=== PATIENT | female | born 1975 | race Caucasian/White ===

== ENCOUNTER 2020-04-11 12:29 | Outpatient (CLI) | payer OTHER, SELFPAY ==
--- NOTE | ~2020-04-11 | XR_ITS ---
EXAMINATION: XR lg joint inject/asp w image DATE: 04/11/2020 13:13 INDICATION: Unilateral primary osteoarthritis, right hip. TECHNIQUE: A time-out was performed to verify the patient's name, date of , and procedure to b e performed. The procedure including the risks, benefits, and alternatives was discussed with the pat ient. Risks discussed included bleeding and infection. The patient understood the risks and agreed to proceed. The skin overlying the right hip joint was prepped and draped in usual sterile fashion. A nesthetic was administered with 1% lidocaine subcutaneously. A 22 G needle was advanced under fluoro scopic guidance into the joint. Injection of 1 mL of Omnipaque 240 confirmed intra-articular positio n of the needle. Subsequently, injectate consisting of 5 mL 1% lidocaine and 2 mL 10 mg/mL Kenalog w as instilled. The needle was removed and the entry site was cleaned and dressed. There were no imme diate complications. Fluoroscopy exposure time was 0.1 minutes. The total number of images was 2. FINDINGS: Real-time fluoroscopy demonstrates the needle in the right hip joint. Patient's pain prior to procedure:4/10. Patient's pain following the procedure: 2/10. IMPRESSION: 1. Right hip joint injection of local anesthetic and steroid with decrease in the patient's presentin g pain. Reviewed, dictated and finalized at location A. IMPRESSION: 1. Right hip joint injection of local anesthetic and steroid with decrease in t he patient's presenting pain.
== END 2020-04-11 12:30 | disposition home or self-care (01) ==
PROVIDERS: PCP Nurse Practitioner Adult Health; Visit Provider Orthopaedic Surgery
DX: M16.11 Unilateral primary osteoarthritis, right hip (principal)
CPT/HCPCS: 20610; 77002; J3301; Q9966

== ENCOUNTER 2020-04-18 09:15 | Outpatient (CLI) | payer OTHER, SELFPAY ==
--- NOTE | ~2020-04-18 | MM_ITS ---
EXAMINATION: MM screening placido BI w juan carlos HISTORY: Screening mammogram TECHNIQUE: Craniocaudal and mediolateral oblique 3-D tomosynthesis images were obtained and synthetic 2-D images were generated. CAD analysis was submitted and interpreted. COMPARISON: 04/06/2019, 05/31/2017, 06/29/2014 bilateral digital screening mammogram examinations BREAST PARENCHYMAL COMPOSITION: There are scattered areas of fibroglandular density. FINDINGS: There is no evidence of suspicious mass, calcification, or architectural distortion to sugg est malignancy in either breast. There has been no suspicious interval change. IMPRESSION: 1. No mammographic evidence of malignancy. 2. Recommend routine screening mammography in one year. BI-RADS Category 1: Negative Reviewed, dictated and finalized at location A.
== END 2020-04-18 09:16 | disposition home or self-care (01) ==
LOC: ANHIMG 09:17
PROVIDERS: PCP Nurse Practitioner Adult Health; Visit Provider Nurse Practitioner Adult Health
DX: Z12.31 Encounter for screening mammogram for malignant neoplasm of breast (principal)
CPT/HCPCS: 77063; 77067

== ENCOUNTER 2020-04-26 11:00 | Outpatient (RCR) | payer OTHER, SELFPAY ==
--- NOTE | 2020-04-18 13:42 | PTOPEVAL ---
Thank you for referring Nubia Saul to [facility]. Please review, sign, date and return this plan of care RAÚL. Mrs. Saul was seen to day for PT evaluation of L shoulder pain. Pt to be seen 2x wk for 4 weeks. I agree with and certify that the following plan of care is medically necessary. Referring Physician Date Admitting Provider: Attending Provider: Keith Bates MD Referring Provider: *PT Outpatient Evaluation Start: 04/18/20 12:28 Freq: Status: Active Protocol: Document 04/18/20 12:28 [facility] (Rec: 04/18/20 13:24 [facility] [id number]) Therapy Assessment Status Assessment Status Assessment Status Evaluation Outpatient Past Medical History Past Medical History No Past Medical/Surgical History Patient/Family Denies Significant Past Medical/ Surgical History Source of Past Medical History Patient Evaluation Information Problem Diagnosis L shoulder pain Additional Evaluation Detail Bad fall 5 years ago. Since then she's been having neck issues that has now progressed to L shoulder pain. Pain shoots back from acromion to between shoulder blades. States she's started having occasional pain down into L arm, however, normally stays at her L shoulder and between shoulder blades. Occasional numbness into L hand and has noticed weakness. Cut the grass a few days ago and had onset of shaking at L shoulder , noticable weakness, and increased pain from gripping the push mower. Subjective Information Pt reports difficulty gripping Query Text:As Reported By Patient/ , carrying, and bathing with L Family arm. Pt has difficulty reaching her head to style her hair. Daily household and recreational activities are limited. States her shoulder fatigues quickly with prolonged activity. Pain Assessment Timing of Pain Assessment Timing of Pain Assessment Assessment Pain Scale Pain Scale Used Numeric (1 - 10) Self Report Pain Assessment Left Shoulder(s) Reported Pain Level 5 Pain Description Sharp Radicular Pain Location L scapula Pain Frequency
--- NOTE | 2020-04-18 16:15 | PTOPEVAL ---
Thank you for referring Nubia Saul to [facility] [place][Note 2]. Please review, sign, date and return this plan of care RAÚL. Mrs. Saul was seen today for PT evaluation. Pt to be seen 2x week for 3 weeks for L shoulder pain. I agree with and certify that the following plan of care is medically necessary. Referring Physician Date Admitting Provider: Attending Provider: Keith Bates MD Referring Provider: *PT Outpatient Evaluation Start: 04/18/20 12:28 Freq: Status: Active Protocol: Document 04/18/20 12:28 [facility] (Rec: 04/18/20 13:24 [facility] [id number]) Therapy Assessment Status Assessment Status Assessment Status Evaluation Outpatient Past Medical History Past Medical History No Past Medical/Surgical History Patient/Family Denies Significant Past Medical/ Surgical History Source of Past Medical History Patient Evaluation Information Problem Diagnosis L shoulder pain Additional Evaluation Detail Bad fall 5 years ago. Since then she's been having neck issues that has now progressed to L shoulder pain. Pain shoots back from acromion to between shoulder blades. States she's started having occasional pain down into L arm, however, normally stays at her L shoulder and between shoulder blades. Occasional numbness into L hand and has noticed weakness. Cut the grass a few days ago and had onset of shaking at L shoulder , noticable weakness, and increased pain from gripping the push mower. Subjective Information Pt reports difficulty gripping Query Text:As Reported By Patient/ , carrying, and bathing with L Family arm. Pt has difficulty reaching her head to style her hair. Daily household and recreational activities are limited. States her shoulder fatigues quickly with prolonged activity. Pain Assessment Timing of Pain Assessment Timing of Pain Assessment Assessment Pain Scale Pain Scale Used Numeric (1 - 10) Self Report Pain Assessment Left Shoulder(s) Reported Pain Level 5 Pain Description Sharp Radicular Pain Location L scapula Pain Frequency
--- NOTE | 2020-04-23 10:31 | PCPTNOTE ---
pt called and canceled due to not able to get away from work;
--- NOTE | 2020-05-29 13:52 | PCPTNOTE ---
PHYSICAL THERAPY DISCHARGE 05-29-2020 Attending Provider: Keith Bates MD Patient:Nubia Saul Date of :1975 Ms. Saul has received 2 PT sessions on April 18 and April 26 for the diagnosis of L shoulder pain. She then stopped attending PT, therefore she will be discharged at this time. The goals were not addressed. Thank you for referring Nubia to [facility]. Please review, sign, date and return this discharge summary RAÚL. I have been updated about the patient's current status and I agree with discharge from the above service at this time. Referring Physician Date
== END 2020-05-29 15:16 | disposition home or self-care (01) ==
LOC: ANHPT 11:00
PROVIDERS: PCP Nurse Practitioner Adult Health; Visit Provider Orthopaedic Surgery
DX: M25.512 Pain in left shoulder (principal)
CPT/HCPCS: 97110; 97140; 97161

== ENCOUNTER 2021-04-22 08:46 | Outpatient (CLI) | payer OTHER, SELFPAY ==
--- NOTE | ~2021-04-22 | MM_ITS ---
EXAMINATION: MM screening placido BI w juan carlos HISTORY: Screening TECHNIQUE: Craniocaudal and mediolateral oblique 3-D tomosynthesis images were obtained and synthetic 2-D images were generated. CAD analysis was submitted and interpreted. COMPARISON: Comparison to multiple prior studies sequentially, with oldest reviewed study dated 06/20. BREAST PARENCHYMAL COMPOSITION: There are scattered areas of fibroglandular density. FINDINGS: There is a cluster of calcifications in the mid lateral aspect of the right breast on CC vi ew. These calcifications are not definitely identified on MLO view. The left breast is stable without evidence for malignancy. IMPRESSION: 1. Cluster of indeterminate calcifications mid lateral aspect of the right breast on CC view. 2. Magnification views recommended. BI-RADS Category 0: Incomplete: Needs additional imaging evaluation. Reviewed, dictated and finalized at location A. IMPRESSION: 1. Cluster of indeterminate calcifications mid lateral aspect of the right darlene st on CC view. 2. Magnification views recommended. BI-RADS Category 0: Incomplete: Needs additional imaging evaluation.
== END 2021-04-22 08:47 | disposition home or self-care (01) ==
LOC: ANHIMG 08:48
PROVIDERS: PCP Nurse Practitioner Adult Health; Visit Provider Nurse Practitioner Adult Health
DX: Z12.31 Encounter for screening mammogram for malignant neoplasm of breast (principal); R92.8 Other abnormal and inconclusive findings on diagnostic imaging of breast
CPT/HCPCS: 77063; 77067

== ENCOUNTER 2021-05-16 13:34 | Outpatient (CLI) | payer OTHER, SELFPAY ==
--- NOTE | ~2021-05-16 | MM_ITS ---
EXAMINATION: MM diagnostic mammo unilat RT HISTORY: Right breast calcifications on screening mammogram TECHNIQUE: Magnification views of the right breast were performed. CAD analysis was submitted and int erpreted. COMPARISON: 04/22/2021, 04/18/2020, 04/06/2019 FINDINGS: There is a faint group of calcifications in the posterior third of the upper outer quadrant breast at the 10:00 location 8 cm from the nipple. The calcifications appear to be round in morpholo gy but are too faint and too few in number to characterize. No associated mass or architectural disto rtion is identified. IMPRESSION: 1. Probably benign right breast calcifications. 2. Recommend 6 month follow-up right diagnostic mammogram. BI-RADS category 3, probably benign findings. Reviewed, dictated and finalized at location A.
== END 2021-05-16 13:35 | disposition home or self-care (01) ==
LOC: ANHIMG 13:37
PROVIDERS: PCP Nurse Practitioner Adult Health; Visit Provider Nurse Practitioner Adult Health
DX: R92.8 Other abnormal and inconclusive findings on diagnostic imaging of breast (principal)
CPT/HCPCS: 77065

== ENCOUNTER 2022-11-17 15:09 | Outpatient (CLI) | payer OTHER, SELFPAY ==
--- NOTE | ~2022-11-17 | MM_ITS ---
EXAMINATION: MM screening placido BI w juan carlos HISTORY: Screening mammogram TECHNIQUE: Craniocaudal and mediolateral oblique 3-D tomosynthesis images were obtained and synthetic 2-D images were generated. CAD analysis was submitted and interpreted. COMPARISON: 05/16/2021 diagnostic right mammogram 04/22/2021, 04/18/2020, 04/06/2019 bilateral screening mammogram examinations BREAST PARENCHYMAL COMPOSITION: There are scattered areas of fibroglandular density. FINDINGS: Microcalcifications in the upper right breast best demonstrated on MLO view. Diagnostic rig ht mammogram with magnification views is recommended, with ultrasound if required Otherwise there is no evidence of suspicious mass, calcification, or architectural distortion to sugg est malignancy in either breast. There has been no other suspicious interval change. IMPRESSION: 1. Right breast microcalcifications 2. Diagnostic right mammogram with magnification views is recommended, with ultrasound if required BI-RADS Category 0: Incomplete: Needs additional imaging evaluation. Reviewed, dictated and finalized at location A. CTOR PHYSICAL THERAPY IMPRESSION: 1. Right breast microcalcifications 2. Diagnostic right mammogram with magnification views is recommended, with ult rasound if required BI-RADS Category 0: Incomplete: Needs additional imaging evaluation.
== END 2022-11-17 15:10 | disposition home or self-care (01) ==
PROVIDERS: PCP Family Medicine; Visit Provider Family Medicine
DX: Z12.31 Encounter for screening mammogram for malignant neoplasm of breast (principal); R92.8 Other abnormal and inconclusive findings on diagnostic imaging of breast
CPT/HCPCS: 77063; 77067

== ENCOUNTER → 2022-11-23 13:31 | Outpatient (CLI) | payer OTHER, SELFPAY ==
--- NOTE | ~2022-11-23 | MR_ITS ---
EXAMINATION: MR abdomen wo/w con DATE: 11/23/2022 14:24 INDICATION: Right upper quadrant abdominal pain and cavernous hemangioma the liver TECHNIQUE: Magnetic resonance imaging (MRI) of the abdomen was performed without and with 15 mL Multi dina intravenous contrast. Sequences included coronal T2-weighted SS-FSE, coronal and axial FS 2D-F IESTA, axial STIR FSE, axial T2-weighted SS-FSE, axial T2-weighted FS SS-FSE, axial diffusion-weighte d SE, axial dual-echo T1-weighted FSPGR, and axial and coronal T1-weighted LAVA. Postcontrast axial T 1-weighted LAVA images were obtained in a time course. Postcontrast coronal T1-weighted LAVA images w ere obtained. COMPARISON: CT dated 07/23/2015 FINDINGS: Arch size is normal. No pericardial or pleural effusion. There are few scattered subcentimeter T2 hyp erintense nonenhancing cysts scattered throughout the liver. No abnormally enhancing liver lesions id entified. Magnetic field artifact associated with cholecystectomy clips at the gallbladder fossa. Spl een, pancreas, bilateral adrenal glands and kidneys are normal. Visualized portion of the bowels are normal with no obstruction. No pathologically enlarged abdominal lymphadenopathy. Bones are unremarka ble. IMPRESSION: 1. Several scattered subcentimeter hepatic cyst. No enhancing hepatic lesions. Reviewed, dictated and finalized at location A. 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
== END ==
PROVIDERS: PCP Family Medicine; Visit Provider Nurse Practitioner Family
DX: D18.03 Hemangioma of intra-abdominal structures (principal); R10.11 Right upper quadrant pain; K76.89 Other specified diseases of liver
CPT/HCPCS: 74183; A9577

== ENCOUNTER 2022-12-02 00:58 | Day surgery (SDC) | payer OTHER, SELFPAY ==
[2022-11-25 11:11] VITALS: BMI 25.9
[2022-12-02 10:05] VITALS: BP 133/89; PULSE 81; RESP 18; TEMP 36.2; O2SAT 100
[2022-12-02] MEDS: LACTATED RINGERS 1,000 ML 150 ML IV CONT (10:15)
--- NOTE | 2022-12-02 10:57 | WPDANESEPPF ---
Anes - Initial Pre Proc Eval Procedure: Operation Date: 12/02/22 11:00 Proposed Procedures p Esophagogastroduodenoscopy - Dominick Stearns MD Date/Time: 12/02/22 10:57 Surgeon: Dominick Stearns MD Pre Op Diagnosis: Lutz's Esophagus Patient Data Age: 47 Gender: F Height: 1.7 m Weight: 78 kg Last Vital Signs Temp 97.2 F L 12/02/22 10:05 Pulse 81 12/02/22 10:05 Resp 18 12/02/22 10:05 BP 133/89 12/02/22 10:05 Pulse Ox 100 12/02/22 10:05 O2 Del Method Room Air 12/02/22 10:05 Allergies Allergy/AdvReac Type Severity Reaction Status Date / Time prednisone Allergy Intermediate Hives Verified 12/02/22 09:59 Home Medications Medication Instructions Recorded Confirmed Type zolpidem 5 mg tablet (Ambien) 10 mg PO ONCE PRN Insomnia 04/09/20 12/02/22 History colestipol 1 gram tablet 1 g PO BID #60 tabs 10/08/22 11/25/22 Rx lansoprazole 30 mg capsule,delayed 30 mg PO DAILY #30 caps 10/08/22 11/25/22 Rx release etonogestrel 0.12 mg-ethinyl 1 vag ring vaginal MONTHLY 11/25/22 12/02/22 History estradiol 0.015 mg/24 hr vaginal ring (EluRyng) Patient hx anesthesia problems: none Family hx anesthesia problems: none Results Review: All pre-operative results and documents have been reviewed as part of the pre-operative evaluation. [facility] Past Medical History Medical History (Updated 10/08/22 @ 10:12 by Chary Degroot, SAMANTHA) Barretts esophagus BMI 25.0-25.9,adult Cavernous hemangioma of liver Chronic cough Chronic diarrhea Chronic right hip pain Colon cancer screening Epigastric burning sensation History of gastrointestinal procedure 2005 Nausea RUQ pain Surgical History Surgical History History of cholecystectomy History of gastrointestinal surgery 1998 Hx of appendectomy Family History Family History Grandparent Malignant tumor of kidney Mother Malignant tumor of ovary Social History Social History Smoking packs per day: 0.5 Smoking cigarettes per day: 10.0 Years smoked: 10 Smoking pack-years: 5.00 Smoking status: Former smoker Tobacco type: cigarettes Alcohol intake: current Drinks per week: 6 Alcohol use details: DRINKS Substance use: never Substance use type: does not use Living arrangements: with family 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/Education: 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 Informed Consent: The patient's anesthetic plan and its attendant risks and benefits were discussed with the patient/family/POA. Questions were solicited and answers provided to the satisfaction of the patient/family/POA.
--- NOTE | 2022-12-02 10:58 | PM.HPGS ---
History of Present Illness History of Present Illness Consent: Risks, benefits, and alternatives have been discussed and questions answered. Patient agrees to proceed with procedure. Chief complaint: Lutz's Esophagus Narrative: Nubia Saul is a 47 year old female with h/o Lutz's, last egd 2017 without dysplasia Review of Systems Constitutional: Constitutional: Denies headache(s) and Denies weakness Eyes: Eyes: Denies blurry vision ENT: Reports Normal hearing present, Denies headache(s) and Denies neck pain Cardiovascular: Cardiovascular: Denies chest pain and Denies dyspnea Respiratory: Respiratory: Denies dyspnea Gastrointestinal: Gastrointestinal: Reports no additional gastrointestinal complaints Genitourinary: Genitourinary: Denies dysuria Musculoskeletal: Musculoskeletal: Denies neck pain Integumentary/Breasts: Skin/Breast: Denies dry skin Neurologic: Reports Normal hearing present, Denies headache(s) and Denies weakness Psychiatric: Psychiatric: Denies anxiety Endocrine: Endocrine: Denies change in body appearance Hematologic/Lymphatic: Hematologic/Lymphatic: Denies easy bleeding Allergic/Immunologic: Allergic/Immunologic: Denies urticaria PMF Past Medical History Medical History (Updated 10/08/22 @ 10:12 by Chary Degroot, SAMANTHA) Barretts esophagus BMI 25.0-25.9,adult Cavernous hemangioma of liver Chronic cough Chronic diarrhea Chronic right hip pain Colon cancer screening Epigastric burning sensation History of gastrointestinal procedure 2005 Nausea RUQ pain Surgical History Surgical History History of cholecystectomy History of gastrointestinal surgery 1998 Hx of appendectomy Family History Family History Grandparent Malignant tumor of kidney Mother Malignant tumor of ovary Social History Social History Smoking packs per day: 0.5 Smoking cigarettes per day: 10.0 Years smoked: 10 Smoking pack-years: 5.00 Smoking status: Former smoker Tobacco type: cigarettes Alcohol intake: current Drinks per week: 6 Alcohol use details: DRINKS Substance use: never Substance use type: does not use Living arrangements: with family 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/Education: 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 Gender identity (if verbalized by the patient): Female Spiritual care concerns: No Meds Home Medications and Allergies Home Medications Medication Instructions Recorded Confirmed Type zolpidem 5 mg tablet (Ambien) 10 mg PO ONCE PRN Insomnia 04/09/20 12/02/22 History colestipol 1 gram tablet 1 g PO BID #60 tabs 10/08/22 11/25/22 Rx lansoprazole 30 mg capsule,delayed 30 mg PO DAILY #30 caps 10/08/22 11/25/22 Rx release etonogestrel 0.12 mg-ethinyl 1 vag ring vaginal MONTHLY 11/25/22 12/02/22 History estradiol 0.015 mg/24 hr vaginal ring (EluRyng) Allergies Allergy/AdvReac Type Severity Reaction Status Date / Time prednisone Allergy Intermediate Hives Verified 12/02/22 09:59 Vital Signs Vital Signs - 24 hr 12/02/22 10:05 Temperature 97.2 F L Pulse Rate 81 Respiratory Rate 18 Blood Pressure 133/89 Pulse Oximetry 100 Oxygen Delivery Room Air Exam Const: General: comfortable and no acute distress HENMT: Face/Nose/Sinus: Normal nares present Eyes: General: appearance normal, both eyes and all related structures Neck: Neck: no JVD Resp: Auscultation: clear to auscultation bilaterally Cardio: Rate: regular rate Rhythm: regular rhythm GI: Inspection: non-distended GI Palp: Yes Soft to palpation Skin: General skin exam: normal color Neuro: General: gait normal Speech: normal speech Extrem: General: normal to inspection Psych: Mental Status: mental status grossly normal Assessment and Plan Asses
[2022-12-02 11:18] VITALS: BP 135/82; PULSE 99; RESP 20; O2SAT 98
[2022-12-02 11:28] VITALS: BP 118/79; PULSE 68; RESP 15; O2SAT 100
[2022-12-02 11:38] VITALS: BP 139/88; PULSE 60; RESP 19; O2SAT 100
== END 2022-12-02 11:40 | disposition home or self-care (01) ==
PROVIDERS: PCP Family Medicine; Visit Provider Internal Medicine Gastroenterology
PROC: 0DJ08ZZ Inspection of Upper Intestinal Tract, Via Natural or Artificial Opening Endoscopic (ICD-10-PCS; CPT 43235; principal; 2022-12-02 11:00)
DX: K22.70 Barrett's esophagus without dysplasia (principal); K29.70 Gastritis, unspecified, without bleeding; K21.9 Gastro-esophageal reflux disease without esophagitis; Z87.891 Personal history of nicotine dependence
CPT/HCPCS: 43239; 88305; J2001; J2704; J7120

== ENCOUNTER 2022-12-24 12:31 | Outpatient (CLI) | payer OTHER, SELFPAY ==
--- NOTE | ~2022-12-24 | MM_ITS ---
EXAMINATION: MM diagnostic placido RT w juan carlos HISTORY: Follow-up right breast calcifications TECHNIQUE: Additional 3-D tomosynthesis images of the right breast were performed and synthetic 2-D i mages were generated. CAD analysis was submitted and interpreted. COMPARISON: Comparison to multiple prior studies sequentially, with oldest reviewed study dated 05/31. BREAST PARENCHYMAL COMPOSITION: Breast composed of scattered areas of fibroglandular density. FINDINGS: The punctate calcifications in the upper aspect of the right breast are not as well visuali zed on follow-up views, likely benign. No suspicious masses or architectural distortion. IMPRESSION: 1. Probable benign right breast calcifications. 2. Recommend 6 month follow-up diagnostic right mammogram BI-RADS category 3, probably benign findings. Reviewed, dictated and finalized at location A.
== END 2022-12-24 12:32 | disposition home or self-care (01) ==
PROVIDERS: PCP Family Medicine; Visit Provider Family Medicine
DX: R92.8 Other abnormal and inconclusive findings on diagnostic imaging of breast (principal)
CPT/HCPCS: 77061; 77065; G0279

== ENCOUNTER 2024-04-18 12:52 | Outpatient (CLI) | payer OTHER, SELFPAY ==
--- NOTE | ~2024-04-18 | MM_ITS ---
EXAMINATION: MM screening [facility] BI w juan carlos HISTORY: Screening TECHNIQUE: Craniocaudal and mediolateral oblique 3-D tomosynthesis images were obtained and synthetic 2-D images were generated. CAD analysis was submitted and interpreted. COMPARISON: Comparison to multiple prior studies sequentially, with oldest reviewed study dated 04/06. BREAST PARENCHYMAL COMPOSITION: Not dense: There are scattered areas of fibroglandular density. FINDINGS: There is no evidence of suspicious mass, calcification, or architectural distortion to sugg est malignancy in either breast. There has been no suspicious interval change. IMPRESSION: 1. No mammographic evidence of malignancy. 2. Recommend routine screening mammography in one year. BI-RADS Category 1: Negative Reviewed, dictated and finalized at location B.
== END 2024-04-18 12:53 ==
DX: Z12.31 Encounter for screening mammogram for malignant neoplasm of breast (principal)
CPT/HCPCS: 77063; 77067

== ENCOUNTER 2025-04-20 10:46 | Outpatient (CLI) | payer OTHER, SELFPAY ==
--- NOTE | ~2025-04-20 | MM_ITS ---
EXAMINATION: MM screening placido BI w juan carlos HISTORY: Screening TECHNIQUE: Craniocaudal and mediolateral oblique 3-D tomosynthesis images were obtained and synthetic 2-D images were generated. CAD analysis was submitted and interpreted. COMPARISON: Comparison to multiple prior studies sequentially, with oldest reviewed study dated 04/18. BREAST PARENCHYMAL COMPOSITION: Dense: The breasts are heterogeneously dense, which may obscure small masses FINDINGS: There is no evidence of suspicious mass, calcification, or architectural distortion to sugg est malignancy in either breast. There has been no suspicious interval change. IMPRESSION: 1. No mammographic evidence of malignancy. 2. Recommend routine screening mammography in one year. BI-RADS Category 1: Negative Reviewed, dictated and finalized at location B.
== END 2025-04-20 10:47 | disposition home or self-care (01) ==
PROVIDERS: Visit Provider Student in an Organized Health Care Education/Training Program
DX: Z12.31 Encounter for screening mammogram for malignant neoplasm of breast (principal)
CPT/HCPCS: 77063; 77067

== ENCOUNTER 2025-08-17 11:18 | Outpatient (CLI) | payer OTHER, SELFPAY ==
--- NOTE | ~2025-08-17 | MR_ITS ---
EXAMINATION: MR ankle LT wo con DATE: 08/17/2025 12:04 INDICATION: Medial sided left ankle pain. Rupture flexor tendons in the left foot. TECHNIQUE: Magnetic resonance imaging (MRI) of the left ankle was performed without intravenous contrast. Sequences included sagittal, coronal, and axial proton-density weighted fast spin echo without and with fat saturation. COMPARISON: Left ankle radiographs dated 07/10/2014 bone alignment is otherwise normal. FINDINGS: Medial ankle ligaments: Deep and superficial deltoid ligaments are normal. There is a partial tear at the navicular insertion of the superomedial component of the spring ligament complex which appears thickened and frayed with prominent increased signal both within the ligament and within the surrounding soft tissues. Lateral ankle ligaments: The anterior and posterior inferior tibiofibular ligaments are normal. The anterior talofibular, calcaneofibular and posterior talofibular ligaments are normal. Tendons: Achilles tendon is normal. The peroneus longus and brevis tendons are normal. The tibialis anterior and extensor hallucis longus and extensor digitorum longus tendons are normal. The tibialis posterior, flexor digitorum longus and flexor hallucis longus tendons are normal. Plantar fascia: Moderate-sized plantar calcaneal spur at the calcaneal origin of the otherwise unremarkable plantar aponeurosis. Bones/other: Persistent mild pes planus. Bone marrow signal is normal throughout with no fracture, reactive edema or pathologic marrow replacing process. Mild polyarticular osteoarthritis at several of the tarsal metatarsal joints. Fluid: Physiologic amount fluid in the joint spaces. There is a 12 x 9 x 7 mm ganglion cyst along the dorsal/lateral margin of the talar neck which arises from the talonavicular joint. No other abnormal fluid collections identified. IMPRESSION: 1. Partial tear at the distal navicular insertion of the superomedial component of the spring ligament complex. Reviewed, dictated and finalized at location A. 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
== END 2025-08-17 11:19 | disposition home or self-care (01) ==
LOC: MICIMG 11:18
PROVIDERS: PCP Podiatrist Foot & Ankle Surgery; Visit Provider Podiatrist Foot & Ankle Surgery
DX: S93.422A Sprain of deltoid ligament of left ankle, initial encounter (principal); X58.XXXA Exposure to other specified factors, initial encounter
CPT/HCPCS: 73721